=== PATIENT | female | born 1975 | race African-American/Black ===

== ENCOUNTER 2018-09-08 06:29 | Day surgery (SDC) | payer BC ==
[~2018-09-08] VITALS: Ht 170.2 cm; Wt 89.8 kg
[2018-09-08] VITALS (8 sets, daily range): BP systolic 124–178; BP diastolic 72–95
[~2018-09-08 06:29] MED LIST: BUPROPION XL300 MG ORAL; NUVARING VAGIN1 EAC1 VG; ZOLOFT50 MG ORAL; [UNRECOGNIZED DRUG - REMARK] PO
[2018-09-08] MEDS ORDERED: cefOXitin Sod 1 GM in D5W 55 ML IVPB ONE (07:00)
[2018-09-08] MEDS ORDERED: Lidocaine 1% MPF 10mg/ml 5ml ONE ×2 (07:10→07:11)
[2018-09-08] MEDS ORDERED: Propofol 200mg/20ml IV ONE (07:10)
[2018-09-08] MEDS ORDERED: Dexamethasone 4mg/ml vial ONE (07:11)
[2018-09-08] MEDS ORDERED: Midazolam 2mg/2ml Inj ONE (07:11)
[2018-09-08] MEDS ORDERED: fentaNYL 100 mcg/2 mL IV ONE (07:11)
--- NOTE | 2018-09-08 07:21 | Anethesia Preoperative Eval ---
Anesthesia Pre-op PMH/ROS General Date of Evaluation: September 08, 2018 Time of Evaluation: 07:20 Anesthesiologist: Lexie Reyes CRNA ASA Score: ASA 2 Mallampati Score Class I : Soft palate, uvula, fauces, pillars visible Class II: Soft palate, uvula, fauces visible Class III: Soft palate, base of uvula visible Class IV: Only hard plate visible Mallampati Classification: Class I Surgeon: Camryn Diagnosis: Uterine fibroids Surgical Procedure: Resectoscope, hysteroscopy, D & C, resection of uterine fibriods Anesthesia History: none Family History: no anesthesia problems Allergies: Coded Allergies: No Known Allergies (Unverified , 09/05/18) Medications: see eMAR Patient NPO?: Yes NPO Date: September 08, 2018 NPO Time: 00:00 Past Medical History Cardiovascular: Denies: HTN, CAD, NV, valve dz, arrhythmia, other Pulmonary: Denies: asthma, COPD, IDA, other Gastrointestinal/Genitourinary: Reports: other - Uterine fibroids; Denies: GERD, CRI, ESRD Neurologic/Psychiatric: Reports: depression/anxiety; Denies: dementia, CVA, TIA, other Endocrine: Denies: DM, hypothyroidism, steroids, other HEENT: Denies: cataract (L), cataract (R), glaucoma, OMAHA (L), OMAHA (R), other Hematology/Immune: Reports: anemia, other - family history of von willebrands and sickle cell, per patient (-) for both; Denies: DVT, bleeding disorder Musculoskeletal/Integumentary: Denies: OA, RA, DJD, DDD, edema, other Other: obesity PMH Narrative: as noted above PSxH Narrative: bunionectomy Anesthesia Pre-op Phys. Exam Physician Exam Last Vital Signs Date Time Temp Pulse Resp B/P (MAP) Pulse Ox O2 Delivery O2 Flow Rate FiO2 09/08/18 07:00 97.6 63 18 128/72 100 Room Air Constitutional: NAD Neurologic: CN 2-12 intact Cardiovascular: RRR Respiratory: CTA Gastrointestinal: S/NT/ND Airway Exam Mallampati Score: Class I MO: full Neck: FROM TMD: > 3 FB ROM: full Teeth: intact Dentures: no upper, no lower Anesthesia Pre-op A/P Labs reviewed, see chart Serum Test HCG (-) 08/31/18 Risk Assessment & Plan Assessment: ASA 2, ok to proceed Plan: GA Status Change Before Surgery: No Pre-Antibiotics Drug: Lexie Jack CRNA September 08, 2018 07:21
[2018-09-08] MEDS ORDERED: Sterile Water Irrig 1000ml IRRIG ONE (07:30)
[2018-09-08] MEDS ORDERED: Sorbitol 2000ml Irrigation IRRIG ONE ×2 (07:30→07:38)
[2018-09-08] MEDS ORDERED: LR 1000ml ONE (07:30)
[2018-09-08] MEDS ORDERED: NS 55ml IV ONE (07:38)
--- NOTE | 2018-09-08 07:41 | Pre-Procedure Note/Attestation ---
Pre-Procedure Note/Attestation Complete Prior to Procedure Planned Procedure: not applicable Procedure Narrative: hysteroscopy, transcervical resection of leiomyoma, Dilation and curettage Indications for Procedure Pre-Operative Diagnosis: Metrorrhagia, submucous fibroid Attestation I attest that I discussed the nature of the procedure; its benefits; risks and complications; and alternatives (and the risks and benefits of such alternatives ), prior to the procedure, with the patient (or the patient's legal operations support representative). I attest that, if there was a reasonable possibility of needing a blood transfusion, the patient (or the patient's legal operations support representative) was given the [place] [employer] standardized written summary, pursuant to the Segundo Mcclusky Blood Safety Act ([place] Health and Safety Code # 1645, as amended). I attest that I re-evaluated the patient just prior to the surgery and that there has been no change in the patient's H&P, except as documented below: Dalia Cowan MD September 08, 2018 07:41
[2018-09-08] MEDS ORDERED: Ketorolac 30mg Inj ONE (08:05)
[2018-09-08] MEDS ORDERED: Morphine Sulfate 10mg/ml Inj ONE (08:05)
[2018-09-08] MEDS ORDERED: Metoclopramide 10mg/2ml Inj IVP PRN ×2 (09:00→09:15)
[2018-09-08] MEDS ORDERED: HYDROcodone/Acetamin 5/325 tab ORAL PRN (09:15)
[2018-09-08] MEDS ORDERED: HYDROmorphone 1mg/ml Carpuject SUBQ PRN (09:15)
[2018-09-08] MEDS ORDERED: Tylenol #3 tab (300mg/30mg) ORAL PRN (09:15)
[2018-09-08] MEDS: Hydromorphone 0.5mg/0.5ml inj IVP PRN ×2 (09:35→10:18)
[2018-09-08 09:37] LABS: BASOPHILS % (AUTO) 0.8 % (0.0-2.0); EOSINOPHILS % (AUTO) 1.5 % (0.0-3.0); HEMATOCRIT 35.9 % (37.0-47.0); HEMOGLOBIN 11.2 G/DL (12.0-16.0); MEAN CORPUSCULAR VOLUME 85 FL (80-99); MONOCYTES % (AUTO) 5.6 % (1.0-10.0); NEUTROPHILS % (AUTO) 73.1 % (45.0-75.0); PLATELET COUNT 304 K/UL (150-450); RED CELL DISTRIBUTION WIDTH 13.9 % (11.6-14.8); WHITE BLOOD COUNT 5.4 K/UL (4.8-10.8)
--- NOTE | 2018-09-08 09:40 | Immediate Post-Op Evaluation ---
Immediate Post-Op Evalulation Immediate Post-Op Evalulation Procedure: Resectoscope, hysteroscopy, D & C, resection of fibroids Date of Evaluation: September 08, 2018 Time of Evaluation: 09:21 IV Fluids: LR 1000 ml Urinary Output: 50 ml Blood Pressure Systolic: 178 Blood Pressure Diastolic: 95 Pulse Rate: 53 Respiratory Rate: 20 O2 Sat by Pulse Oximetry: 100 Temperature (Fahrenheit): 97.1 Pain Score (1-10): 5 Nausea: No Vomiting: No Complications none Patient Status: awake, reacts, patent, extubated Hydration Status: adequate Drug: Cefazolin 2000 mg IV Given Within 1 Hr of Incision: Yes Time Given: 07:50 Lexie Reyes CRNA September 08, 2018 09:40
[2018-09-08 09:59] LABS: ALANINE AMINOTRANSFERASE 21 U/L (12-78); ALBUMIN 3.6 G/DL (3.4-5.0); ALBUMIN/GLOBULIN RATIO 0.9 (1.0-2.7); ALKALINE PHOSPHATASE 52 U/L (46-116); ANION GAP 8 mmol/L (5-15); ASPARTATE AMINO TRANSFERASE 27 U/L (15-37); BILIRUBIN,TOTAL 0.2 MG/DL (0.2-1.0); BLOOD UREA NITROGEN 10 mg/dL (7-18); CARBON DIOXIDE 26 MMOL/L (21-32); CHLORIDE 105 MMOL/L (98-107); CREATININE 0.8 MG/DL (0.55-1.30); POTASSIUM 3.9 MMOL/L (3.5-5.1); SODIUM 139 MMOL/L (136-145)
--- NOTE | 2018-09-08 10:40 | NUR ---
NURSE NOTES: Patient arrived from PACU via bed to 320-1 on O2 3LNC, report received from Nohelia CASTELLANOS. Patient alert, oriented x4, calm. Denies pain, NV, or SOB. IVF infusing to right hand as ordered, site asymptomatic. Patient to remain NPO. FC patent, draining y/cl urine to gravity. Isatu-pad with small amount of bloody drainage. Bilateral SCDs on. CMS+ skin warm, hand grasps/pedal pushes equal/strong, pedal pulses palpable, wiggles. Instructed and demonstrated on CDB, patient returned demonstration. Oriented patient to room and call light use for safety. Call light in reach, bed in lowest position, will continue to monitor.
--- NOTE | 2018-09-08 12:02 | 48 Hour Post Anesthesia Eval ---
Post Anesthesia Evaluation Procedure: Resectoscope, hysteroscopy, D & C, resection of fibroids Date of Evaluation: September 08, 2018 Time of Evaluation: 12:01 Blood Pressure Systolic: 136 0: 78 Pulse Rate: 63 Respiratory Rate: 15 Temperature (Fahrenheit): 97.6 O2 Sat by Pulse Oximetry: 100 Airway: patent Nausea: No Vomiting: No Pain Intensity: 0 Hydration Status: adequate Cardiopulmonary Status: stable Mental Status/LOC: patient returned to baseline Follow-up Care/Observations: per gyne Post-Anesthesia Complications: none Follow-up care needed: N/A Lexie Reyes CRNA September 08, 2018 12:02
[2018-09-08] MEDS ORDERED: D5 1/2NS 1,000 ML IV SCH (13:00)
[2018-09-08 13:08] LABS: HEMATOCRIT 38.2 % (37.0-47.0); HEMOGLOBIN 12.2 G/DL (12.0-16.0); MEAN CORPUSCULAR VOLUME 84 FL (80-99); PLATELET COUNT 352 K/UL (150-450); RED BLOOD COUNT 4.53 M/UL (4.20-5.40); RED CELL DISTRIBUTION WIDTH 13.3 % (11.6-14.8); WHITE BLOOD COUNT 4.8 K/UL (4.8-10.8)
[2018-09-08 13:57] LABS: ALANINE AMINOTRANSFERASE 25 U/L (12-78); ALBUMIN 3.8 G/DL (3.4-5.0); ALBUMIN/GLOBULIN RATIO 0.9 (1.0-2.7); ALKALINE PHOSPHATASE 53 U/L (46-116); ANION GAP 10 mmol/L (5-15); ASPARTATE AMINO TRANSFERASE 33 U/L (15-37); BILIRUBIN,TOTAL 0.2 MG/DL (0.2-1.0); BLOOD UREA NITROGEN 9 mg/dL (7-18); CARBON DIOXIDE 25 MMOL/L (21-32); CHLORIDE 99 MMOL/L (98-107); CREATININE 0.8 MG/DL (0.55-1.30); POTASSIUM 4.2 MMOL/L (3.5-5.1); SODIUM 134 MMOL/L (136-145)
--- NOTE | 2018-09-08 14:17 | NUR ---
NURSE NOTES: Lab results reported to Dr. Cowan as ordered. Orders received, see orders.
--- NOTE | 2018-09-08 14:48 | NUR ---
NURSE NOTES: Patient said she is feeling a little warm. Temperature assessed, 97.4. Blankets removed. Cool washcloths provided. Will continue to monitor.
--- NOTE | 2018-09-08 16:45 | NUR ---
NURSE NOTES: IV heplocked at 1420 as ordered. Patient started on liquids (water, juice, jello) and regular diet ordered. Tolerated fair, no NV. Goodman emptied 600 ml y/cl urine, discontinued. Assisted patient up to bathroom, richard pad moderate bloody drainage, patient performed self skin/richard-care and richard pad changed. Order for CMP at 1830 changed to now per Dr. Cowan order. Will continue to monitor.
--- NOTE | 2018-09-08 17:30 | NUR ---
NURSE NOTES: Ice pack to lower abdomen in place. Patient denies abdominal pain/cramps. Patient reports she voided, prior to hat placed in toilet. Instructed patient that I need to see urine output. Hat in bathroom. Patient drinking lots of water and will attempt to void again. Will continue to monitor.
[2018-09-08 17:38] LABS: ANION GAP 8 mmol/L (5-15); BLOOD UREA NITROGEN 11 mg/dL (7-18); CARBON DIOXIDE 28 MMOL/L (21-32); CHLORIDE 99 MMOL/L (98-107); CREATININE 0.9 MG/DL (0.55-1.30); POTASSIUM 5.2 MMOL/L (3.5-5.1); SODIUM 134 MMOL/L (136-145)
[2018-09-08 17:43] LABS: ALANINE AMINOTRANSFERASE 25 U/L (12-78); ALBUMIN 3.8 G/DL (3.4-5.0); ALBUMIN/GLOBULIN RATIO 0.9 (1.0-2.7); ALKALINE PHOSPHATASE 54 U/L (46-116); ASPARTATE AMINO TRANSFERASE 23 U/L (15-37); BILIRUBIN,TOTAL 0.4 MG/DL (0.2-1.0)
--- NOTE | 2018-09-08 19:10 | NUR ---
NURSE NOTES: Notified Dr. Cowan with STAT CMP (lab [id number]) results, Na 134 K 5.2 and that patient experiencing mild nausea, no emesis, medicated with Zofran and that patient reports feeling full/bloated and reviewed patient dietary intake. Orders received, see orders. Will endorse to night nurse.
--- NOTE | 2018-09-08 19:40 | NUR ---
NURSE NOTES: Report received from Perlita CASTELLANOS. Pt is resting in bed in stable condition. Pt is awake, alert, and oriented x4. Pt is on 4L O2 via nasal cannula and breathing is even and unlabored. No acute distress noted. IV site is R FA #20g and is asymptomatic, patent, and intact. Bed is placed in lowest position with brake engaged and side rails up x2. Fall education provided. Pt noted to be independently ambulatory with steady gait. Call light and side table placed within reach. Pt denies nausea/SOB. Pending possible discharge if pt is able to void. Orders noted per MD Cowan for post-op void. Will bladder scan if no void at 2200. Will continue to monitor.
--- NOTE | 2018-09-08 19:40 | NUR ---
HAND-OFF: Report given to Lexi CASTELLANOS.
--- NOTE | 2018-09-08 20:27 | NUR ---
NURSE NOTES: Pt voided 100cc clear yellow urine in hat in toilet. Message left for MD Cowan to confirm okay to discharge patient home. Pt is requesting to go home tonight vs. tomorrow AM. Awaiting call back for further instructions.
--- NOTE | 2018-09-08 20:30 | Operative Note - Dictated ---
DATE OF OPERATION: 09/08/2018 PROCEDURE PERFORMED: Hysteroscopy, transcervical resection of a fibroid with a resectoscope. SURGEON: Dalia Cowan M.D. CRANE SERVICE TECHNICIAN: None. ANESTHESIA: General. ANESTHESIOLOGIST: Lexie Reyes CRNA. ESTIMATED BLOOD LOSS: 100 mL. FLUIDS: Crystalloid fluids 1 liter LR as well as sorbitol 3% with an approximately 1 liter deficit. COMPLICATIONS: 1 liter deficit of sorbitol. FINDINGS: Two large submucosal fibroids, first posterior fundal approximately 2.5 cm and a second one posterior and left lateral approximately 3.5 cm. PROCEDURE IN DETAIL: After ensuring informed consent, the patient was taken to the operating room where general anesthesia was induced. The patient was sterilely prepped and draped and placed in dorsal lithotomy position. A speculum was placed in the vagina and the cervix was easily dilated to a 10 Hegar dilator. Resectoscope was placed inside the uterine cavity. Uterine cavity was distended with sorbitol. Unfortunately, there was problem with the first resectoscope that was used with the flow of fluid (coming from the side and not enough flow to distend). Then, the resectoscope had to be exchanged. The next resectoscope was functioning appropriately and was placed inside the uterine cavity. Uterine cavity was distended with sorbitol and resection was started. First posterior lower uterine segment fibroid was easily resected completely. Next, attention was turned to the higher left lateral posterior fibroid, which was about 50% resected when we had the 1 liter sorbitol deficit and resection was halted for that reason. Please note that prior to beginning the resection, 5 units of diluted Pitressin was injected into the uterus to both minimize the absorption and to minimize the blood loss. At the end of the procedure, excellent hemostasis was assured and all instrument and lap counts were correct x2. The patient was taken to the recovery area in stable condition and with the sodium sent stat from the recovery area as well as monitored throughout the day. Dalia Cowan M.D. DR: STEW JOB#: [id number] CC: OLEG
--- NOTE | 2018-09-08 21:04 | NUR ---
NURSE NOTES: 2nd message left for MD Cowan regarding pt discharge. Awaiting call back for confirmation.
--- NOTE | 2018-09-08 21:34 | NUR ---
NURSE NOTES: MD Cowan return call and state okay to discharge patient home. Orders noted and carried out.
[2018-09-08] MEDS ORDERED: IBUPROFEN600 MG ORAL (21:40)
[2018-09-08] MEDS ORDERED: D5 1/2NS 1000ml IV ONE (21:59)
--- NOTE | 2018-09-08 22:00 | NUR ---
NURSE NOTES: Pt discharged home with self-care per MD Cowan. Pt in stable condition upon discharge. Pt denies pain or shortness of breath at this time. Pt AAOx4, on room air with unlabored breathing, VSS, afebrile. Pt belongings list checked with patient at bedside and signed by patient. All belongings sent home with patient. Pt provided with discharge packet including discharge instructions. Pt instructed to f/u with MD within 7 days from discharge. Pt instructed to call 911 or go to ER for any new onset or significantly worsening of symptoms such as increase in vaginal bleeding or pain unrelieved by pain medication. Pt verbalized understanding of all of the above. Rx written by MD Cowan provided to patient, copy of rx placed in chart. IV site and ID band removed. Pt accompanied by RN via wheelchair to private vehicle. Pt friend to drive pt home.
== END 2018-09-08 22:00 | disposition home or self-care (01) ==
LOC: SUR 06:29 → 3E 12:47
DX: D25.0 Submucous leiomyoma of uterus (principal); F41.9 Anxiety disorder, unspecified; F32.9 Major depressive disorder, single episode, unspecified
CPT/HCPCS: 36415; 58561; 80053; 81025; 85007; 85025; J0690; J1100; J1170; J1885; J2250; J2270; J2405; J2704; J2765; J3010; 94003; 94150